=== PATIENT | female | born 1980 | race Caucasian/White ===

== ENCOUNTER 2022-11-26 10:01 | Emergency (ER) | payer OTHER, SELFPAY ==
[2022-11-26 10:08] VITALS: BP 174/113; PULSE 108; RESP 20; TEMP 36.4; O2SAT 100
--- NOTE | 2022-11-26 10:25 | ED.GENADULT ---
HPI - General Adult General Chief complaint: Skin/Abscess/Foreign Body Stated complaint: bump on top of head Time Seen by Provider: 11/26/22 10:25 Source: patient, RN notes reviewed and old records reviewed Mode of arrival: ambulatory Limitations: no limitations History of Present Illness HPI narrative: 42 year old female who presents to express care with concern of having possible tick in hair.Patient reports she was running her fingers in her hair and felt hard spot in her hair on crown region of her head. Patient denies any fevers chills or malaise or any pain. Patient reports history of hypertension but is not taking medication. MD complaint: foreign body scalp Onset (ago): hour(s) (within past hour) Treatments prior to arrival: none Related Data Home Medications Medication Instructions Recorded Confirmed No Home Medications 11/26/22 11/26/22 Allergies Allergy/AdvReac Type Severity Reaction Status Date / Time No Known Allergies Allergy Unverified 02/10/19 21:13 Review of Systems Review of Systems: CONSTITUTIONAL: Denies fever, chills, or sweats. EYES: Denies visual changes, redness, or discharge. ENT: Denies rhinorrhea, congestion, sore throat, or otalgia. CARDIOVASCULAR: Denies chest pain, palpitations, or edema. RESPIRATORY: Denies cough or dyspnea. GASTROINTESTINAL: Denies abdominal pain, nausea, vomiting, or diarrhea. GENITOURINARY: Denies dysuria or hematuria. SKIN: Denies rash or itching.reports hard spot in the crown of head, concern for tick MUSCULOSKELETAL: Denies back pain, joint pain, or myalgia. NEUROLOGIC: Denies headache, numbness, or weakness. PSYCHIATRIC: Positive anxiety or depression. All systems reviewed & are unremarkable except as noted in HPI and below PMFSH Past Medical History Medical History (Updated 11/27/22 @ 09:39 by Rosamaria Blair NP) Hypertension no taking medication Social History Social History (Updated 11/27/22 @ 09:25 by Rosamaria Blair NP) Smoking status: Current some day smoker Tobacco type: cigarettes Alcohol intake: current Substance use: unknown Gender identity (if verbalized by the patient): Female Comments At time of signature, agree with nursing past medical, surgical, social and family history. There is no relevant family history pertinent to the presenting complaint Exam Narrative: GENERAL: Well-appearing, well-nourished, and in no acute distress. HEAD: Normocephalic, atraumatic. EYES: PERRLA and EOMI. ENT: Nares clear, no rhinorrhea or epistaxis. Mucous membranes moist.TM's normal throat pink with no swelling NECK: Supple.no lymphadenopathy CHEST: Clear to auscultation. No respiratory distress.SAO2 100% on room air HEART: Regular rate and rhythm. No murmur heard. Normal peripheral pulses. ABDOMEN: Soft, nontender, nondistended, normal active bowel sounds. EXTREMITIES: Normal range of motion. No edema. SKIN: Warm, dry, no rash. gelatin type of material removed from hair no wounds on scalp noted, appears to be some form of glue NEURO: No focal deficits. Alert and oriented x3. Course Course Emergency Course: Patient is aware of diagnosis, understands and agrees to treatment plan.? Anticipatory guidance given.? Patient agrees to follow-up as directed and is aware of reasons to seek care at the emergency department. Portions of this record may have been created with voice recognition software Level of Care: Express Care Visit Vital Signs Vital signs: Vital Signs Temperature 36.4 C L 11/26/22 10:08 Pulse Rate 108 H 11/26/22 10:08 Respiratory Rate 20 11/26/22 10:08 Blood Pressure 174/113 H 11/26/22 10:08 Pulse Oximetry 100 11/26/22 10:08 Oxygen Delivery Room Air 11/26/22 10:08 Temperature 36.4 C L 11/26/22 10:08 Pulse Rate 108 H 11/26/22 10:08 Respiratory Rate 20 11/26/22 10:08 Blood Pressure 174/113 H 11/26/22 10:08 Pulse Oximetry 100 11/26/22 10:08 Oxygen Delivery Room Air 11/26/22 10
== END 2022-11-26 10:35 | disposition home or self-care (01) ==
PROVIDERS: Emergency Provider Registered Nurse
DX: S00.05XA Superficial foreign body of scalp, initial encounter (principal); X58.XXXA Exposure to other specified factors, initial encounter; F17.210 Nicotine dependence, cigarettes, uncomplicated
CPT/HCPCS: 99202; G0463